=== PATIENT | male | born 1975 | race Caucasian/White ===

== ENCOUNTER 2016-07-25 13:17 | Emergency (ER) | payer BC ==
--- NOTE | 2016-07-25 14:55 | UC ---
Respiratory Complaint HPI - HPI Summary HPI Summary: productive cough for 2.5 weeks, sinus pressure/congestion. Took a turn for the worse a few days ago with worse malaise, fever, right-sided facial pain, worse cough. No vomiting or diarrhea. No rash. Non-smoker - History of Current Complaint Chief Complaint: UCRespiratory Stated Complaint: RESPIRATORY COMPLAINT Time Seen by Provider: 07/25/16 14:36 Hx Obtained From: Patient Onset/Duration: Gradual Onset, Lasting Weeks - 2.5 Timing: Constant Severity Initially: Mild Severity Currently: Moderate Character: Cough: Productive Aggravating Factors: Exertion, Recumbent Position Associated Signs And Symptoms: Positive: URI, Nasal Congestion, Hoarseness, Sinus Discomfort. Negative: Hemoptysis, Dizziness - Risk Factors Pulmonary Embolism Risk Factors: Negative Cardiac Risk Factors: Negative Pseudomonas Risk Factors: Negative Tuberculosis Risk Factors: Negative - Allergies/Home Medications Allergies/Adverse Reactions: Allergies Allergy/AdvReac Type Severity Reaction Status Date / Time Penicillins Allergy Unknown Unknown Verified 07/25/16 14:19 Reaction Details seasonal Allergy Runny Nose Uncoded 07/25/16 14:19 PMH/Surg Hx/FS Hx/Imm Hx - Additional Past Medical History Additional PMH: morbid obesity Endocrine History Of: Reports: Thyroid Disease - goiter removed Cardiovascular History Of: Reports: Hypertension - Surgical History Surgical History: Yes Surgery Procedure, Year, and Place: goiter removal - Family History Known Family History: Positive: Hypertension Negative: Cardiac Disease, Diabetes - Social History Occupation: Employed Full-time - special certified pesticide applicator Lives: With Family Alcohol Use: Rare Substance Use Type: None Smoking Status (MU): Never Smoked Tobacco - Immunization History Most Recent Influenza Vaccination: no Review of Systems Constitutional: Negative Skin: Negative Eyes: Negative ENT: Sore Throat, Nasal Discharge Respiratory: Cough Cardiovascular: Negative Gastrointestinal: Negative Genitourinary: Negative Motor: Negative Neurovascular: Negative Musculoskeletal: Negative Neurological: Negative Psychological: Negative All Other Systems Reviewed And Are Negative: Yes Physical Exam Triage Information Reviewed: Yes Appearance: Well-Appearing, No Pain Distress, Well-Nourished, Obese Vital Signs: Initial Vital Signs Temp 98.3 F 07/25/16 14:21 Pulse 85 07/25/16 14:21 Resp 20 07/25/16 14:21 Pulse Ox 97 07/25/16 14:21 Vital Signs Reviewed: Yes Eye Exam: Normal ENT: Positive: Hearing grossly normal, Pharynx normal, Nasal congestion, TM dull - pinkish on right. Negative: Tonsillar swelling, Tonsillar exudate, Trismus, Muffled/hoarse voice Respiratory Exam: Normal Respiratory: Positive: Lungs clear, Normal breath sounds, No respiratory distress, No accessory muscle use Cardiovascular Exam: Normal Musculoskeletal Exam: Normal Neurological Exam: Normal Psychological Exam: Normal Skin Exam: Normal UC Diagnostic Evaluation - Laboratory O2 Sat by Pulse Oximetry: 97 Respiratory Course/Dx - Differential Dx/Diagnosis Differential Diagnosis/HQI/PQRI: Bronchitis, Lower Resp Infection, Sinusitis Provider Diagnoses: bronchitis Discharge - Discharge Plan Condition: Stable Disposition: HOME Prescriptions: Clarithromycin TAB* [Biaxin TAB*] 500 mg PO BID #20 tab Patient Education Materials: Acute Bronchitis (ED) Referrals: Camilo Rodrigues MD [Primary Care Provider] -
== END 2016-07-25 15:02 | disposition home or self-care (01) ==
LOC: UCCORT 13:17
DX: J40 Bronchitis, not specified as acute or chronic (principal); I10 Essential (primary) hypertension; E66.01 Morbid (severe) obesity due to excess calories; Z88.0 Allergy status to penicillin; Z86.39 Personal history of other endocrine, nutritional and metabolic disease
CPT/HCPCS: 99212; G0463

== ENCOUNTER 2016-12-03 19:01 | Emergency (ER) | payer BC ==
[2016-12-03 21:19] VITALS: BP 107/64
--- NOTE | 2016-12-03 22:17 | UC ---
General HPI - HPI Summary HPI Summary: THREE HOURS AGO, PUNCTURED LEFT THUMB WITH BARBED WIRE. UNSURE OF LAST TETANUS SHOT - History of Current Complaint Chief Complaint: Laith Stated Complaint: PUNCTURE WOUND HAND/ NEEDS TETANUS Time Seen by Provider: 12/03/16 21:14 Hx Obtained From: Patient Onset/Duration: Sudden Onset, Lasting Hours, Still Present Onset Severity: Mild Current Severity: None Pain Intensity: 0 Associated Signs & Symptoms: Positive: Trauma - PW LEFT THUMB BARBED WIRE - Allergy/Home Medications Allergies/Adverse Reactions: Allergies Allergy/AdvReac Type Severity Reaction Status Date / Time Penicillins Allergy Unknown Unknown Verified 12/03/16 21:19 Reaction Details seasonal Allergy Runny Nose Uncoded 12/03/16 21:19 PMH/Surg Hx/FS Hx/Imm Hx Previously Healthy: Yes Endocrine History Of: Reports: Thyroid Disease - goiter removed Cardiovascular History Of: Reports: Hypertension - Surgical History Surgical History: Yes Surgery Procedure, Year, and Place: goiter removal - Family History Known Family History: Positive: Hypertension Negative: Cardiac Disease, Diabetes - Social History Occupation: Employed Full-time Lives: With Family Alcohol Use: None Substance Use Type: None Smoking Status (MU): Never Smoked Tobacco - Immunization History Most Recent Influenza Vaccination: no Most Recent Tetanus Shot: 10/25/11 Review of Systems Constitutional: Negative Skin: Other - PW LEFT THUMB Eyes: Negative ENT: Negative Respiratory: Negative Cardiovascular: Negative Gastrointestinal: Negative Genitourinary: Negative Motor: Negative Neurovascular: Negative Musculoskeletal: Negative Neurological: Negative Psychological: Negative All Other Systems Reviewed And Are Negative: Yes Physical Exam Triage Information Reviewed: Yes Appearance: Well-Appearing, No Pain Distress, Well-Nourished, Obese Vital Signs: Initial Vital Signs Temp 99.1 F 12/03/16 21:14 Pulse 78 12/03/16 21:14 Resp 17 12/03/16 21:14 BP 107/64 12/03/16 21:14 Pulse Ox 100 12/03/16 21:14 Vital Signs Reviewed: Yes Eye Exam: Normal ENT Exam: Normal Dental Exam: Normal Neck exam: Normal Respiratory Exam: Normal Respiratory: Positive: Chest non-tender, Lungs clear, Normal breath sounds, No respiratory distress, No accessory muscle use Cardiovascular Exam: Normal Cardiovascular: Positive: RRR, No Murmur, Pulses Normal Abdominal Exam: Normal Musculoskeletal Exam: Normal Musculoskeletal: Positive: Strength Intact, ROM Intact, No Edema, Other: - PW LEFT THUMB, WOUND CLEAN Neurological Exam: Normal Psychological Exam: Normal Skin Exam: Other - PW LEFT THUMB Course/Dx - Course Course Of Treatment: RECORDS INDICATE LAST TENTANUS SHOT WAS LESS THAN 5 YEARS AGO. - Differential Dx - Multi-Symptom Differential Diagnoses: Other - TETANUS PROPHYLAXIS Provider Diagnoses: PUNCTURE WOUND LEFT THUMB Discharge - Discharge Plan Condition: Stable Disposition: HOME Patient Education Materials: Puncture Wound (ED) Referrals: Camilo Rodrigues MD [Primary Care Provider] - Additional Instructions: LAST TENTANUS SHOT 2011 (FIVE YEARS AGO). Images Hands: 1 - PUNCTURE WOUND HERE
== END 2016-12-03 21:42 | disposition home or self-care (01) ==
LOC: UCCORT 19:01
DX: S61.032A Puncture wound without foreign body of left thumb without damage to nail, initial encounter (principal); W26.8XXA Contact with other sharp object(s), not elsewhere classified, initial encounter; Y93.9 Activity, unspecified; Y92.9 Unspecified place or not applicable; I10 Essential (primary) hypertension; E66.9 Obesity, unspecified; Z88.0 Allergy status to penicillin
CPT/HCPCS: 99211; G0463

== ENCOUNTER 2019-03-06 08:05 | Emergency (ER) | payer BC ==
[2019-03-06 08:21] VITALS: BP 139/87
--- NOTE | 2019-03-06 08:32 | UC ---
UC General HPI - HPI Summary HPI Summary: pt is c/o pain to the base of his left great toe since waking Friday am(3 days ago). It is aggravated by touch, movement and walking. he has no hx of gout. hr tried some motrin and tylenol which helped a little. no hx injury. +redness and swelling but no fever or chills. - History of Current Complaint Chief Complaint: UCLowerExtremity Stated Complaint: LEFT GREAT TOE PAIN Time Seen by Provider: 03/06/19 08:23 Hx Obtained From: Patient Onset/Duration: Sudden Onset Timing: Constant Pain Intensity: 3 Associated Signs & Symptoms: Negative: Weakness - Allergy/Home Medications Allergies/Adverse Reactions: Allergies Allergy/AdvReac Type Severity Reaction Status Date / Time Penicillins Allergy Unknown Verified 03/06/19 08:16 Reaction Details PMH/Surg Hx/FS Hx/Imm Hx Cardiovascular History: Hypertension Psychological History: Anxiety - Surgical History Surgical History: Yes Surgery Procedure, Year, and Place: goiter removal - Family History Known Family History: Positive: Hypertension, Other - adopted Negative: Cardiac Disease, Diabetes - Social History Alcohol Use: Rare Substance Use Type: None Smoking Status (MU): Never Smoked Tobacco - Immunization History Most Recent Influenza Vaccination: no Most Recent Tetanus Shot: 10/25/11 Review of Systems All Other Systems Reviewed And Are Negative: No Constitutional: Negative: Fever, Chills Neurological: Negative: Weakness, Paresthesia, Numbness Physical Exam Triage Information Reviewed: Yes Appearance: Well-Appearing Vital Signs: Initial Vital Signs Temp 98.4 F 03/06/19 08:14 Pulse 88 03/06/19 08:14 Resp 18 03/06/19 08:14 BP 139/87 03/06/19 08:14 Pulse Ox 100 03/06/19 08:14 Vital Signs Reviewed: Yes Cardiovascular: Positive: RRR Musculoskeletal: Positive: Other: - LLE= hip, knee, ankle and achilles without swelling and rom intact. foot=swelling, slight warmth and mild erythema plus tender to base of great toe(mainly) plantar surface. rest of foot uremarkable and non tender. foot has full s/v/m function. Neurological: Positive: Alert Psychological: Positive: Age Appropriate Behavior Skin Exam: Normal Course/Dx - Course Course Of Treatment: no hx renal disease or PUD thus will tx with nsaid. - Differential Dx - Multi-Symptom Differential Diagnoses: Other - no hx injury thus xray not indicated/will not change tx. acute onset at base of toe thus gout possible; howvever, mostly plantar surface over tendon. gauze place and taped over ball of foot giving much relief thus tendinopathy possible. will tx with nsaid, pt to conctinue the splint and he already has f/u with his pcp. no concern for cellulitis or septic joint or fx. - Diagnoses Provider Diagnosis: Pain of left great toe Discharge - Sign-Out/Discharge Documenting (check all that apply): Patient Departure All imaging exams completed and their final reports reviewed: No Studies - Discharge Plan Condition: Stable Disposition: HOME Prescriptions: Naproxen [Naprosyn 500 mg tab] 500 mg PO BID 5 Days #10 tablet Patient Education Materials: Gout (ED), Tendinitis (ED) Referrals: Camilo Melchor MD [Primary Care Provider] - Additional Instructions: STOP PRIOR TREATMENTS. APPLY SPLINT TO BALL OF FOOT SHOWN DURING VISIT. FOLLOW UP WITH DR MELCHOR SCHEDULED NEXT WEEK OR SOONER FOR ANY WORSENING. - Billing Disposition and Condition Condition: STABLE Disposition: Home - Attestation Statements Provider Attestation: I was available for consult. This patient was seen by the U[facility]IR. The patient was not presented to, seen by, or examined by me. -Fara
== END 2019-03-06 08:50 | disposition home or self-care (01) ==
LOC: UCCORT 08:05
DX: M79.675 Pain in left toe(s) (principal); I10 Essential (primary) hypertension
CPT/HCPCS: 99212; G0463